=== PATIENT | female | born 2000 | race Two or more races ===

== ENCOUNTER 2020-10-24 01:03 | Emergency (ER) | payer OTHER ==
[~2020-10-24] VITALS: Ht 165.1 cm; Wt 90.3 kg
[2020-10-24] MEDS ORDERED: CEPHALEXIN500 MG PO (03:46)
== END 2020-10-24 03:50 | disposition home or self-care (01) ==
LOC: EMR PED 01:03 → ER 01:17
DX: M94.0 Chondrocostal junction syndrome [Tietze] (principal); R07.89 Other chest pain; R30.0 Dysuria